=== PATIENT | male | born 1955 | race Caucasian/White ===

== ENCOUNTER 2021-04-29 11:13 | Day surgery (SDC) | payer MEDICARE ==
[~2021-04-29] VITALS: Ht 165.1 cm; Wt 103.6 kg
[2021-04-29] VITALS (11 sets, daily range): BP systolic 138–154; BP diastolic 78–103; PULSE 72–88; TEMP 98–98.1
[2021-04-29 11:59] LABS: HEMATOCRIT 47.3 % (42.0-52.0); HEMOGLOBIN 16.5 g/dl (13.5-18.0); MEAN CELL VOLUME 91 fl (80.0-100.0); MEAN CORPUSCULAR HEMOGLOBIN 32 pg (27-31); MEAN CORPUSCULAR HGB CONC 35 g/dl (33.0-37.0); MEAN PLATELET VOLUME 9.7 fl (7.4-10.4); PLATELET COUNT 281 K/mm3 (130-400); RED BLOOD COUNT 5.21 M/mm3 (4.20-5.60); REDCELL DISTRIBUTION WIDTH-CV 12.9 % (11.5-14.5)
[2021-04-29] MEDS ORDERED: LIPITOR 10MG10 MG PO (12:05)
[2021-04-29] MEDS ORDERED: DULOXETINE HCL40 MG PO (12:06)
[2021-04-29] MEDS ORDERED: LOTENSIN20 MG PO (12:06)
[2021-04-29] MEDS ORDERED: LASIX 40MG TABL40 MG PO (12:07)
[2021-04-29] MEDS ORDERED: TOPROL XL 25MG25 MG PO (12:07)
[2021-04-29 12:14] LABS: CALCIUM 8.5 mg/dL (8.4-10.2); CREATININE, serum 0.71 mg/dL (0.72-1.25); POTASSIUM 3.7 mmol/L (3.5-4.5)
[2021-04-29 12:32] LABS: INR 1.1 (0.8-3.0); PROTHROMBIN TIME 11.8 SECONDS (9.7-12.8)
[2021-04-29 12:35] LABS: PARTIAL THROMBOPLASTIN TIME 27.9 SECONDS (26.0-37.0)
--- NOTE | 2021-04-29 14:11 | NUR ---
SEE MERGE FOR ALL MEDICATION ADMINISTRATION TIMES/DOSAGES AND INTRA/POST PROCEDURE SEDATION ASSESSMENTS.
--- NOTE | 2021-04-29 14:35 | NUR ---
PT BACK FROM [facility] [employer] [facility]. PT IS ALERT AND ORIENTED. VSS. PT INSTRUCTED TO NOT USE RIGHT ARM. CALL LIGHT GIVEN.
--- NOTE | 2021-04-29 16:53 | NUR ---
SMALL AMOUNT OF BLEEDING NOTED. 2ML OF AIR REPLACED. WILL CONTINUE TO MONTIOR.
--- NOTE | 2021-04-29 17:20 | NUR ---
NO NEW BLEEDING NOTED. 2MLS OF AIR REMOVED AND NOW AT 8MLS OF AIR. WILL CONTINUE TO MONITOR.
--- NOTE | 2021-04-29 18:21 | NUR ---
TR band removed, no bleeding noted. Discharge instructions discussed with pt. All questions answered IV and tele dc'd. Pt getting dressed and awaiting ride.
--- NOTE | 2021-04-29 18:35 | NUR ---
Pt wheeled out to the ER enterence for discharge. Pt has all paperwork.
== END 2021-05-01 17:59 ==
LOC: COL.CAR 11:13
PROVIDERS: Internal Medicine Cardiovascular Disease
DX: I42.8 Other cardiomyopathies (principal); I45.2 Bifascicular block; E66.9 Obesity, unspecified; I11.0 Hypertensive heart disease with heart failure; I50.22 Chronic systolic (congestive) heart failure; R60.0 Localized edema; E78.2 Mixed hyperlipidemia; F17.200 Nicotine dependence, unspecified, uncomplicated; Z82.49 Family history of ischemic heart disease and other diseases of the circulatory system; Z79.899 Other long term (current) drug therapy; Z68.36 Body mass index [BMI] 36.0-36.9, adult
CPT/HCPCS: C1769; J1644; J2250; J3010; Q9967